=== PATIENT | female | born 1965 | race Two or more races ===

== ENCOUNTER 2016-12-17 05:18 | Inpatient (IN) | payer OTHER ==
[2016-12-17] VITALS (14 sets, daily range): BP systolic 104–136; BP diastolic 66–80
[~2016-12-17] VITALS: Ht 154.9 cm; Wt 74.4 kg
[~2016-12-17 05:18] MED LIST: IBUPROFEN600 MG ORAL; TRAMADOL HCL50 MG ORAL
--- NOTE | 2016-12-17 06:49 | Pre-Procedure Note/Attestation ---
Pre-Procedure Note/Attestation Complete Prior to Procedure Planned Procedure: not applicable Procedure Narrative: L5-S1 Instability with Foraminal Stenosis. For Anterior Lumbar Interbody Decompression and fusion at L5/S1 Indications for Procedure Pre-Operative Diagnosis: L5/S1 instability with Foraminal Stenosis Attestation I attest that I discussed the nature of the procedure; its benefits; risks and complications; and alternatives (and the risks and benefits of such alternatives ), prior to the procedure, with the patient (or the patient's legal field representatives director). I attest that, if there was a reasonable possibility of needing a blood transfusion, the patient (or the patient's legal field representatives director) was given the [place] [facility] [employer] [facility] standardized written summary, pursuant to the Julián [place] Blood Safety Act ([place] Health and Safety Code # 1645, as amended). I attest that I re-evaluated the patient just prior to the surgery and that there has been no change in the patient's H&P, except as documented below: SARA BROWN Dec 17, 2016 06:49
[2016-12-17] MEDS ORDERED: Thrombin 5000 units TOPIC ONE ×2 (06:52→08:22)
[2016-12-17] MEDS ORDERED: Gelfoam Absorbable 1gm powder pkt TOPIC ONE (06:53)
[2016-12-17] MEDS ORDERED: Bacitracin 50000 Units Vial ONE ×2 (06:53→08:22)
[2016-12-17] MEDS ORDERED: Bupivacaine w/Epi 0.5% 30ml Vial INJ ONE (06:53)
[2016-12-17] MEDS ORDERED: Thrombin 5000 units spray kit TOPIC ONE (06:53)
[2016-12-17] MEDS ORDERED: Esmolol 100mg/10ml Inj ONE (07:00)
[2016-12-17] MEDS ORDERED: Propofol 10mg/ml 100ml btl IV ONE (07:00)
[2016-12-17] MEDS ORDERED: Zemuron 50mg/5ml Inj IV ONE (07:00)
[2016-12-17] MEDS ORDERED: NS Irrig 1000ml ONE (07:00)
[2016-12-17] MEDS ORDERED: fentaNYL 100 mcg/2 mL IV ONE (07:00)
[2016-12-17] MEDS ORDERED: LR 1000ml ONE (07:00)
[2016-12-17] MEDS ORDERED: Midazolam 2mg/2ml Inj ONE (07:00)
[2016-12-17] MEDS ORDERED: Sterile Water Irrig 1000ml IRRIG ONE (07:00)
--- NOTE | 2016-12-17 07:13 | Anethesia Preoperative Eval ---
Anesthesia Pre-op PMH/ROS General Date of Evaluation: Dec 17, 2016 Time of Evaluation: 06:45 Anesthesiologist: Parth ASA Score: ASA 1 Mallampati Score Class I : Soft palate, uvula, fauces, pillars visible Class II: Soft palate, uvula, fauces visible Class III: Soft palate, base of uvula visible Class IV: Only hard plate visible Mallampati Classification: Class II Surgeon: Odette Diagnosis: Intervertebral disc disorder Surgical Procedure: ALIF L5-S1 Anesthesia History: none Family History: no anesthesia problems Allergies: Coded Allergies: No Known Allergies (Unverified , 12/14/16) Medications: see eMAR Past Medical History Cardiovascular: Denies: CAD, HTN, [place], arrhythmia, other, valve dz Pulmonary: Denies: COPD, HAY, asthma, other Gastrointestinal/Genitourinary: Denies: CRI, ESRD, GERD, other Neurologic/Psychiatric: Denies: CVA, TIA, dementia, depression/anxiety, other Endocrine: Denies: DM, hypothyroidism, other, steroids HEENT: Denies: STAND[place] (L), STAND[place] (R), cataract (L), cataract (R), glaucoma, other Hematology/Immune: Denies: DVT, anemia, bleeding disorder, other Musculoskeletal/Integumentary: Denies: DDD, DJD, OA, RA, edema, other PMH Narrative: Denies PSxH Narrative: No prior surgery Anesthesia Pre-op Phys. Exam Physician Exam Last Vital Signs Date Time Temp Pulse Resp B/P Pulse Ox O2 Delivery O2 Flow Rate FiO2 12/17/16 05:59 97.3 61 20 104/68 98 Room Air Constitutional: NAD Neurologic: CN 2-12 intact Cardiovascular: RRR, no M/R/G Respiratory: CTA Gastrointestinal: S/NT/ND Airway Exam Mallampati Score: Class II MO: full ROM: full Teeth: intact Anesthesia Pre-op A/P Labs WNL Studies Pre-op Studies: EKG - NSR Risk Assessment & Plan Assessment: Healthy female Plan: GETA Status Change Before Surgery: No Pre-Antibiotics Drug: Ancef 2 GM Given Within 1 Hr of Incision: Yes Time Given: 07:30 LILIANA KAY M.D. Dec 17, 2016 07:13
[2016-12-17] MEDS ORDERED: LR 1000ml 1,000 ML IVLG SCH (07:14)
--- NOTE | 2016-12-17 07:14 | Immediate Post-Op Evaluation ---
Immediate Post-Op Evalulation Immediate Post-Op Evalulation Procedure: ALILF L5-S1 Date of Evaluation: Dec 17, 2016 Time of Evaluation: 09:15 IV Fluids: 800 Estimated Blood Loss: 350 Blood Pressure Systolic: 128 Blood Pressure Diastolic: 75 Pulse Rate: 90 Respiratory Rate: 13 O2 Sat by Pulse Oximetry: 99 Temperature (Fahrenheit): 98.0 Pain Score (1-10): 0 Nausea: No Vomiting: No Complications No complication Patient Status: reacts, patent, extubated, none Hydration Status: adequate Drug: Ancef 2 GM Given Within 1 Hr of Incision: Yes Time Given: 07:30 LILIANA KAY M.D. Dec 17, 2016 07:14
[2016-12-17] MEDS ORDERED: Meperidine 25mg/ml Inj IV PRN (07:15)
[2016-12-17] MEDS ORDERED: Hydromorphone 0.5mg/0.5ml inj IVP PRN (07:15)
[2016-12-17] MEDS ORDERED: LORazepam Inj 2mg/ml 1ml IV PRN (07:15)
[2016-12-17] MEDS ORDERED: DiphenhydrAMINE 50mg/ml Inj IVP PRN ×2 (07:15→10:00)
--- NOTE | 2016-12-17 08:55 | Operative Note - PDOC ---
Operative Note Operative Note Pre-op Diagnosis: L5/S1 instability with Foraminal Stenosis Procedure: ALIF L5/S1 Post-op Diagnosis: same as pre-op Operative Findings: consistent w/pre-op dx studies Surgeon: Odette Malariologist: ROSANNA Brown Additional Surgeons: Pedro Solares - Vascular Approach Anesthesiologist: Parth Anesthesia: general Specimen: yes Complications: none Condition: stable Estimated Blood Loss: minimal Drains: none Implant(s) used?: Yes - Aga InFix Large, 10MM, 3+3 Degree SARA BROWN Dec 17, 2016 08:55
[2016-12-17] MEDS ORDERED: LR 1000ml 1,000 ML IV SCH (09:14)
[2016-12-17] MEDS: PCA HYDROmorphone 1mg/ml 30 ML IV PRN (09:51)
[2016-12-17] MEDS ORDERED: Rate Change PCA 1 Each MISC PRN (10:00)
[2016-12-17] MEDS ORDERED: Naloxone 0.4mg/ml Inj IVP PRN (10:00)
--- NOTE | 2016-12-17 10:48 | Diagnostic Imaging Report ---
Indication: Back pain, intraoperative, right lower extremity pain Technique: Digital intraoperative images Comparison: None Findings: Digital intraoperative images demonstrate surgical tool projected anterior to what is presumably L5-S1 disc. Subsequent images demonstrate placement of a disc prosthesis Impression: Intraoperative imaging, as described
[2016-12-17] MEDS ORDERED: Acetaminophen 650 MG SUPP RECTAL PRN (11:00)
[2016-12-17] MEDS: PCA shift volume MISC SCH ×2 (15:00→23:57)
[2016-12-17] MEDS: ceFAZolin sod 1 GM in D5W 55 ML IV SCH (16:38)
--- NOTE | 2016-12-17 17:27 | Operative Note - Dictated ---
DATE OF OPERATION: 12/17/2016 VASCULAR SURGEON: Uche Solares M.D. SPINE SURGEON: Sebastián Pino M.D. PREOPERATIVE DIAGNOSIS: Anterior retroperitoneal exposure of L5-S1 vertebral interspace. INDICATIONS: The patient is a very pleasant woman who was seen in my office prior to surgery. She has been scheduled for anterior fusion of L5-S1. An extensive discussion was had with her about the need for vascular surgery and mobilization of iliac vessels to expose the anterior surface of the L5-S1. The need for abdominal incision was also discussed. She understands the risks of surgery, and wishes to proceed. DESCRIPTION OF FINDINGS: A low Pfannenstiel type incision was made. A left retroperitoneal approach was used. There was no peritoneal or ureteral violation. There was no vascular injury. Exposure of L5-S1 was obtained below the left iliac vessels and confirmed using fluoroscopy. On completion, the retractor was gently removed. The peritoneum and ureter were intact. The iliac vessels were intact. There were palpable femoral and pedal pulses on completion. BLOOD LOSS: Less than 50 mL. COMPLICATIONS: None. DESCRIPTION OF PROCEDURE: The patient was taken to the operating room. General anesthesia was used. Intravenous antibiotics were given. The patient's abdomen was prepped and draped. Proper time-out procedures were taken. A transverse incision was made just above the pubic symphysis. Flaps were raised superiorly. The anterior fascia was incised longitudinally in midline. A plane was identified posterior to the left rectus abdominis, developed posterolaterally towards the patient's left. The retroperitoneal space was then bluntly entered below the arcuate line. The peritoneum and ureter were mobilized towards the patient's right exposing the left common iliac vessels. Dissection was carried on the undersurface of left common iliac vein. The median sacral artery and vein were identified and ligated with vascular clips and divided and this allowed us to retract the left iliac vessels superior and laterally and expose the anterior surface of L5-S1. The Omni retractor was set in place. Fluoroscopy was then used to confirm the appropriate level, and then instrumentation and fusion were performed at L5-S1 and dictated separately. On completion, retractor was gently removed. The peritoneum and ureter were intact. Iliac vessels were intact. The anterior fascia was closed using #1 PDS in a running fashion. The skin and subcutaneous tissue closed using 3-0 Vicryl and 4-0 Monocryl running subcuticular closure technique. ESTIMATED BLOOD LOSS: Less than 100 mL. COMPLICATIONS: None. Uche Solares M.D. DR: KELLY JOB#: [id number] CC:
--- NOTE | 2016-12-17 18:17 | Operative Note - Dictated ---
DATE OF OPERATION: 12/17/2016 SURGEON: Sebastián Pino M.D. HEALTH DIAGNOSTICS TEACHER: 1. Dr. Solares, vascular approach, co-surgeon. 2. LISA Gomez. ANESTHESIA: Dr. Aguilar, general endotracheal with arterial blood pressure monitoring. PREOPERATIVE DIAGNOSIS: Disc herniation collapse and irritation of the exiting right-sided root at the L5-S1 level. POSTOPERATIVE DIAGNOSIS: Disc herniation collapse and irritation of the exiting right-sided root at the L5-S1 level. OPERATIVE PROCEDURE: Left pararectus anterior approach to the lumbar spine with vessel mobilization and retraction by Dr. Solares. The patient then had an anterior annulotomy and a nuclear diskectomy with partial vertebrectomy, bilateral neural foraminotomy and micro neurolysis. Internal fixation at the lumbosacral level was done with a large size infix cage using 10 millimeters of height and 3+ 3 degrees of lordosis. Bone protein was used along with autogenous bone for the fusion portion of the procedure. Image intensifier was used for aid in placement of the cage and a pulse oximetry was used to monitor the vascular status of the patient's lower extremities. The patient was prepped and draped supine on the operating table. Bolster was placed in lumbar area to create normal lordosis. A left lower abdominal pararectus incision was made by Dr. Solares. The rectus was mobilized. The retroperitoneal space was entered and the front of the disc at L5-S1 was cleared. Vessels were retracted using a table fixed frame and reverse tip blades to center. The Lumbosacral disc was marked with a spinal needle. AP and lateral was taken. Anterior annulotomy was then done. The nuclear disc and cartilaginous endplate was then sequentially removed while using bullet lordotic detachable retractors [id number] beginning at 8 millimeters and progressing to 13 millimeters. The disk was cleared to the posterior edge where the posterior longitudinal ligament posterior disc anulus was released and removed and a bilateral neural foraminotomy was accomplished. Osteophytes were removed from the posterior edge of the vertebral body and extending into both the right and left foramen. The remaining lateral soft tissues were then tensed using a 10 implant, which was visualized on image. Good height and overall alignment was obtained. The large construct fit well within the margins of the vertebral body. A 3+ 3 degrees of lordosis was added to the construct, endplates were tapped into place in a collapsed position. The side struts were then inserted and x-ray was again taken to confirm placement, lordosis and disc height. The side struts were then locked into place and the FloSeal was placed across the dural sac and the epidural venous plexus which were easily visualized. Bone protein was placed within the inferior superior cage window using bone protein and autogenous bone harvested during the procedure. The vessels were checked and the wound was closed in layers including anterior posterior rectus sheath subcutaneous and skin. Blood loss was 50 to 100 mL. The patient was placed in a bulky compression dressing and returned to recovery room in good condition. Sebastián Pino M.D. DR: JOLEEN JOB#: [id number] CC: MADDI
[2016-12-18] VITALS: BP 122/75
[2016-12-18] MEDS: ceFAZolin sod 1 GM in D5W 55 ML IV SCH ×2 (00:49→08:52)
[2016-12-18 04:00] VITALS: BP 116/67
[2016-12-18] MEDS: PCA shift volume MISC SCH ×3 (07:06→23:24)
[2016-12-18 07:14] LABS: BASOPHILS % (AUTO) 0.7 % (0.0-2.0); EOSINOPHILS % (AUTO) 1.3 % (0.0-3.0); MEAN CORPUSCULAR HEMOGLOBIN 28.4 PG (27.0-31.0); MEAN CORPUSCULAR HGB CONC 33.5 G/DL (32.0-36.0); MEAN CORPUSCULAR VOLUME 85 FL (80-99); PLATELET COUNT 211 K/UL (150-450); RED BLOOD COUNT 4.45 M/UL (4.20-5.40); RED CELL DISTRIBUTION WIDTH 12.6 % (11.6-14.8); WHITE BLOOD COUNT 8.2 K/UL (4.8-10.8)
[2016-12-18 07:45] LABS: ANION GAP 12 (5-15); CALCIUM 8.5 mg/dL (8.6-10.2); CARBON DIOXIDE 25 mEQ/L (20-30); CHLORIDE 104 mEQ/L (98-107); CREATININE 0.7 mg/dL (0.5-0.9); GLOMERULAR FILTRATION RATE > 60 mL/min (>60); HEMOLYSIS 2; SODIUM 141 mEQ/L (135-145)
[2016-12-18 08:00] VITALS: BP 128/77
[2016-12-18] MEDS: PCA HYDROmorphone 1mg/ml 30 ML IV PRN (09:36)
--- NOTE | 2016-12-18 10:10 | 48 Hour Post Anesthesia Eval ---
Post Anesthesia Evaluation Procedure: ALILF L5-S1 Date of Evaluation: Dec 18, 2016 Time of Evaluation: 11:30 Blood Pressure Systolic: 128 0: 77 Pulse Rate: 108 Respiratory Rate: 20 Temperature (Fahrenheit): 98.6 O2 Sat by Pulse Oximetry: 99 Airway: patent Nausea: Yes Vomiting: No Pain Intensity: 4 If pain is > 6 Comment: Explained to patient to request antiemetics if needed. She is using COLLATOR Hydration Status: adequate Cardiopulmonary Status: Stable Mental Status/LOC: patient returned to baseline Follow-up Care/Observations: As per surgery Post-Anesthesia Complications: No anesthetic complication Follow-up care needed: N/A LILIANA KAY M.D. Dec 18, 2016 10:10
[2016-12-18 12:03] VITALS: BP 128/71
--- NOTE | 2016-12-18 13:13 | General Surgery Progress Note ---
General Surgery-Progress Note Subjective Procedure Performed ALIF L5/S1 Symptoms: pain same Objective Last 24 Hour Vital Signs Date Time Temp Pulse Resp B/P Pulse Ox O2 Delivery O2 Flow Rate FiO2 12/18/16 12:03 98.1 83 18 128/71 95 Room Air 12/18/16 12:00 18 12/18/16 11:47 108 20 99 12/18/16 08:00 20 12/18/16 08:00 98.6 108 18 128/77 99 Nasal Cannula 2.0 12/18/16 04:00 98.4 107 18 116/67 98 Nasal Cannula 2.0 12/18/16 04:00 20 12/18/16 00:00 20 12/18/16 00:00 100.4 118 18 122/75 98 Nasal Cannula 2.0 12/17/16 22:36 101.0 12/17/16 20:00 100.8 144 20 132/74 96 Room Air 12/17/16 20:00 100.8 12/17/16 16:07 99.0 119 18 136/80 98 Nasal Cannula 2.0 12/17/16 15:40 17 12/17/16 13:20 97.0 85 20 118/71 100 Nasal Cannula 2.0 I&O Intake and Output 12/17/16 12/18/16 19:00 07:00 Intake Total 1525 ml 900 ml Output Total 350 ml Balance 1175 ml 900 ml Intake IV Total 1525 ml 900 ml Output Estimated Blood Loss 350 ml Dressing: dry Wound: clean Drains: none Abdomen: soft, flat, absent bowel sounds Laboratory Tests Test 12/18/16 06:15 White Blood Count 8.2 K/UL (4.8-10.8) Red Blood Count 4.45 M/UL (4.20-5.40) Hemoglobin 12.7 G/DL (12.0-16.0) Hematocrit 37.7 % (37.0-47.0) Mean Corpuscular Volume 85 FL (80-99) Mean Corpuscular Hemoglobin 28.4 PG (27.0-31.0) Mean Corpuscular Hemoglobin Concent 33.5 G/DL (32.0-36.0) Red Cell Distribution Width 12.6 % (11.6-14.8) Platelet Count 211 K/UL (150-450) Mean Platelet Volume 9.0 FL (6.5-10.1) Neutrophils (%) (Auto) 61.0 % (45.0-75.0) Lymphocytes (%) (Auto) 28.0 % (20.0-45.0) Monocytes (%) (Auto) 9.0 % (1.0-10.0) Eosinophils (%) (Auto) 1.3 % (0.0-3.0) Basophils (%) (Auto) 0.7 % (0.0-2.0) Sodium Level 141 mEQ/L (135-145) Potassium Level 4.0 mEQ/L (3.4-4.9) Chloride Level 104 mEQ/L (98-107) Carbon Dioxide Level 25 mEQ/L (20-30) Anion Gap 12 (5-15) Blood Urea Nitrogen 10 mg/dL (7-23) Creatinine 0.7 mg/dL (0.5-0.9) Estimat Glomerular Filtration Rate > 60 mL/min (>60) Glucose Level 106 mg/dL (74-106) Calcium Level 8.5 mg/dL (8.6-10.2) L Additional Comments Wound C&D, lower extremity strength 5/5. To begin PT / OT today. No lower GI track activity. Dr. Condon following. SARA BROWN Dec 18, 2016 13:13
[2016-12-18 16:14] VITALS: BP 138/85
--- NOTE | 2016-12-18 20:06 | History & Physical ---
History and Physical History & Physicial 12/17 HP reviewed care noted d/w RN meds noted and discussed KADE CUMMINS Dec 18, 2016 20:06
--- NOTE | 2016-12-18 20:08 | General Progress Note ---
Assessment/Plan Assessment/Plan ALIF L5/S1 post operative pain tachycardia fevers PLAN 1. incentive spirometry 2. Monitor fevers 3. PT evaluation and therapy 4. Hydration 5. Pain management 6. discharge once stable with outpatient follow up Subjective Allergies: Coded Allergies: No Known Allergies (Unverified , 12/14/16) Subjective tachycardic with fevers has pain Objective Last 24 Hour Vital Signs Date Time Temp Pulse Resp B/P Pulse Ox O2 Delivery O2 Flow Rate FiO2 12/18/16 16:14 100.6 109 18 138/85 96 Room Air 12/18/16 16:00 18 12/18/16 12:03 98.1 83 18 128/71 95 Room Air 12/18/16 12:00 18 12/18/16 11:47 108 20 99 12/18/16 08:00 20 12/18/16 08:00 98.6 108 18 128/77 99 Nasal Cannula 2.0 12/18/16 04:00 98.4 107 18 116/67 98 Nasal Cannula 2.0 12/18/16 04:00 20 12/18/16 00:00 20 12/18/16 00:00 100.4 118 18 122/75 98 Nasal Cannula 2.0 12/17/16 22:36 101.0 Intake and Output 12/17/16 12/18/16 19:00 07:00 Intake Total 1525 ml 900 ml Output Total 350 ml Balance 1175 ml 900 ml Intake IV Total 1525 ml 900 ml Output Estimated Blood Loss 350 ml Laboratory Tests 12/18/16 06:15: White Blood Count 8.2, Red Blood Count 4.45, Hemoglobin 12.7, Hematocrit 37.7, Mean Corpuscular Volume 85, Mean Corpuscular Hemoglobin 28.4, Mean Corpuscular Hemoglobin Concent 33.5, Red Cell Distribution Width 12.6, Platelet Count 211, Mean Platelet Volume 9.0, Neutrophils (%) (Auto) 61.0, Lymphocytes (%) (Auto) 28.0, Monocytes (%) (Auto) 9.0, Eosinophils (%) (Auto) 1.3, Basophils (%) (Auto ) 0.7, Sodium Level 141, Potassium Level 4.0, Chloride Level 104, Carbon Dioxide Level 25, Anion Gap 12, Blood Urea Nitrogen 10, Creatinine 0.7, Estimat Glomerular Filtration Rate > 60, Glucose Level 106, Calcium Level 8.5L Height (Feet): 5 Height (Inches): 1.00 Weight (Pounds): 164 Objective WDWN NAD clear breath sounds bilaterally without rhonchi or wheeze S1S2RR tachy without MRG NABS nontender no HSM no CCE nonfocal KADE CUMMINS Dec 18, 2016 20:08
[2016-12-18 20:22] VITALS: BP 123/76
[2016-12-19 00:24] VITALS: BP 138/78
[2016-12-19 04:00] VITALS: BP 130/74
[2016-12-19] MEDS: PCA shift volume MISC SCH ×2 (07:00→23:00)
[2016-12-19 08:10] VITALS: BP 122/66
[2016-12-19] MEDS: PCA HYDROmorphone 1mg/ml 30 ML IV PRN (09:40)
[2016-12-19] MEDS ORDERED: Norco 7.5mg/325mg tab ORAL PRN ×2 (10:01)
[2016-12-19] MEDS ORDERED: HYDROmorphone 1mg/ml Carpuject SUBQ PRN (10:01)
[2016-12-19] MEDS ORDERED: Naloxone 0.4mg/ml Inj IVP PRN ×2 (10:01→15:30)
[2016-12-19] MEDS ORDERED: HYDROmorphone 1mg/ml Carpuject IVP PRN (10:01)
[2016-12-19 11:28] VITALS: BP 139/80
--- NOTE | 2016-12-19 12:28 | General Progress Note ---
Assessment/Plan Assessment/Plan ALIF L5/S1 post operative pain tachycardia fevers PLAN 1. incentive spirometry 2. Monitor fevers 3. PT evaluation and therapy 4. Hydration 5. Pain management 6. discharge once stable with outpatient follow up ? in am Subjective Allergies: Coded Allergies: No Known Allergies (Unverified , 12/14/16) Subjective tachycardic with fevers have resolved has pain Objective Last 24 Hour Vital Signs Date Time Temp Pulse Resp B/P Pulse Ox O2 Delivery O2 Flow Rate FiO2 12/19/16 12:00 16 12/19/16 11:28 98.1 77 20 139/80 94 Room Air 12/19/16 08:42 99.0 12/19/16 08:10 99.0 117 20 122/66 97 Nasal Cannula 2.0 12/19/16 08:00 16 12/19/16 04:00 100.4 112 19 130/74 92 Nasal Cannula 12/19/16 04:00 16 12/19/16 00:24 97.2 103 19 138/78 99 Nasal Cannula 12/19/16 00:00 20 12/18/16 20:47 18 12/18/16 20:22 100.8 104 18 123/76 95 Room Air 12/18/16 16:14 100.6 109 18 138/85 96 Room Air 12/18/16 16:00 18 Intake and Output 12/18/16 12/19/16 19:00 07:00 Intake Total 900 ml 675 ml Balance 900 ml 675 ml Intake IV Total 900 ml 675 ml # Voids 4 2 Height (Feet): 5 Height (Inches): 1.00 Weight (Pounds): 164 Objective WDWN NAD clear breath sounds bilaterally without rhonchi or wheeze S1S2RR RRR without MRG minimal bowel sounds nontender no HSM no CCE nonfocal KADE CUMMINS Dec 19, 2016 12:28
--- NOTE | 2016-12-19 14:46 | General Surgery Progress Note ---
General Surgery-Progress Note Subjective Procedure Performed ALIF L5/S1 Symptoms: improved, passing flatus Objective Last 24 Hour Vital Signs Date Time Temp Pulse Resp B/P Pulse Ox O2 Delivery O2 Flow Rate FiO2 12/19/16 12:00 16 12/19/16 11:28 98.1 77 20 139/80 94 Room Air 12/19/16 08:42 99.0 12/19/16 08:10 99.0 117 20 122/66 97 Nasal Cannula 2.0 12/19/16 08:00 16 12/19/16 04:00 100.4 112 19 130/74 92 Nasal Cannula 12/19/16 04:00 16 12/19/16 00:24 97.2 103 19 138/78 99 Nasal Cannula 12/19/16 00:00 20 12/18/16 20:47 18 12/18/16 20:22 100.8 104 18 123/76 95 Room Air 12/18/16 16:14 100.6 109 18 138/85 96 Room Air 12/18/16 16:00 18 I&O Intake and Output 12/18/16 12/19/16 19:00 07:00 Intake Total 900 ml 675 ml Balance 900 ml 675 ml Intake IV Total 900 ml 675 ml # Voids 4 2 Dressing: dry Wound: clean Drains: none Abdomen: soft Additional Comments Patient began passing gas this AM, will start on clears at PM meal if continues. Pt making minimal progress /effort in Physical Therapy Dr. Condon following. SARA BROWN Dec 19, 2016 14:46
[2016-12-19] MEDS ORDERED: Rate Change PCA 1 Each MISC PRN (15:30)
[2016-12-19] MEDS ORDERED: DiphenhydrAMINE 50mg/ml Inj IVP PRN (15:30)
[2016-12-19] MEDS ORDERED: PCA HYDROmorphone 1mg/ml 30 ML IV PRN (15:30)
[2016-12-19 15:50] VITALS: BP 134/79
[2016-12-19 20:00] VITALS: BP 118/71
[2016-12-20] VITALS: BP 120/77
[2016-12-20 04:00] VITALS: BP 118/73
[2016-12-20] MEDS: PCA shift volume MISC SCH (07:00)
[2016-12-20 08:09] VITALS: BP 139/85
--- NOTE | 2016-12-20 08:14 | General Progress Note ---
Assessment/Plan Assessment/Plan ALIF L5/S1 post operative pain tachycardia fevers PLAN 1. incentive spirometry 2. start clears and advance 3. PT evaluation and therapy 4. Hydration 5. 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 discharge planning if agreed to by surgery Subjective Allergies: Coded Allergies: No Known Allergies (Unverified , 12/14/16) Subjective pain better still NPO passing gas Objective Last 24 Hour Vital Signs Date Time Temp Pulse Resp B/P Pulse Ox O2 Delivery O2 Flow Rate FiO2 12/20/16 08:09 98.2 62 20 139/85 95 Room Air 12/20/16 04:00 98.1 83 16 118/73 93 Room Air 12/20/16 04:00 16 12/20/16 00:00 16 12/20/16 00:00 97.7 90 16 120/77 96 Room Air 12/19/16 20:00 98.2 82 18 118/71 96 Room Air 12/19/16 20:00 16 12/19/16 16:00 16 12/19/16 15:50 97.3 80 20 134/79 93 Room Air 12/19/16 12:00 16 12/19/16 11:28 98.1 77 20 139/80 94 Room Air 12/19/16 08:42 99.0 Intake and Output 12/19/16 12/20/16 19:00 07:00 Intake Total 450 ml 825 ml Balance 450 ml 825 ml Intake IV Total 450 ml 825 ml # Voids 4 3 Height (Feet): 5 Height (Inches): 1.00 Weight (Pounds): 164 Objective WDWN NAD clear breath sounds bilaterally without rhonchi or wheeze S1S2RR RRR without MRG noted bowel sounds nontender no HSM no CCE nonfocal KADE CUMMINS Dec 20, 2016 08:14
[2016-12-20] MEDS ORDERED: Norco 7.5mg/325mg tab ORAL PRN (08:41)
[2016-12-20] MEDS ORDERED: HYDROmorphone 1mg/ml Carpuject SUBQ PRN (08:41)
[2016-12-20] MEDS ORDERED: HYDROmorphone 1mg/ml Carpuject IVP PRN (08:41)
[2016-12-20] MEDS ORDERED: Naloxone 0.4mg/ml Inj IVP PRN (08:41)
--- NOTE | 2016-12-20 09:46 | General Surgery Progress Note ---
General Surgery-Progress Note Subjective Procedure Performed ALIF L5/S1 Chief Complaint: Swelling at abdominal incision area Symptoms: improved Objective Last 24 Hour Vital Signs Date Time Temp Pulse Resp B/P Pulse Ox O2 Delivery O2 Flow Rate FiO2 12/20/16 08:09 98.2 62 20 139/85 95 Room Air 12/20/16 04:00 98.1 83 16 118/73 93 Room Air 12/20/16 04:00 16 12/20/16 00:00 16 12/20/16 00:00 97.7 90 16 120/77 96 Room Air 12/19/16 20:00 98.2 82 18 118/71 96 Room Air 12/19/16 20:00 16 12/19/16 16:00 16 12/19/16 15:50 97.3 80 20 134/79 93 Room Air 12/19/16 12:00 16 12/19/16 11:28 98.1 77 20 139/80 94 Room Air I&O Intake and Output 12/19/16 12/20/16 19:00 07:00 Intake Total 450 ml 825 ml Balance 450 ml 825 ml Intake IV Total 450 ml 825 ml # Voids 4 3 Dressing: dry Wound: clean Drains: none Abdomen: other - Swelling at and cephaalad to abdoninal incision, consistant with seroma. Additional Comments Will evaluate swelling in abdominal wall with abdominal ultrasound today. Appears to be seroma / collection superficial to facia. Patient activity progress has been very slow. SARA oDe Dec 20, 2016 09:46
[2016-12-20 11:42] VITALS: BP 127/68
--- NOTE | 2016-12-20 11:54 | Diagnostic Imaging Report ---
Indications: Abdominal pain and distention, nausea and vomiting Technique: Transabdominal real-time grayscale and duplex Doppler imaging of the upper abdomen and retroperitoneum was performed. Findings: Comparison: None. Liver normal size and surface contour, diffusely increased parenchymal echogenicity. No focal lesions. Gallbladder contains lobulated hypoechoic non-shadowing material. No stone identified.. No mural thickening or adjacent fluid collections. Sonographic Thomason sign negative.. Bile ducts normal caliber. Common bile duct 7 mm. Pancreas visualized portions unremarkable. Spleen unremarkable. Right kidney demonstrates mild collecting system dilation, otherwise unremarkable. Left kidney demonstrates mild collecting system dilation, otherwise unremarkable. Abdominal aorta, intrahepatic portion of inferior vena cava patent, normal caliber. Duplex Doppler imaging demonstrates antegrade flow in splenic, portal, hepatic veins. No ascites. Urinary bladder markedly distended. IMPRESSION: Bilateral hydronephrosis, nonspecific, may be secondary to urinary bladder distention and outlet obstruction. Repeat imaging following Rios catheter insertion recommended. Hepatic steatosis Gallbladder sludge Remainder of exam unremarkable.
[2016-12-20 16:00] VITALS: BP 127/70
[2016-12-20 19:00] VITALS: BP 137/75
[2016-12-21] VITALS: BP 131/87
[2016-12-21 04:00] VITALS: BP 119/65
[2016-12-21 08:00] VITALS: BP 124/74
--- NOTE | 2016-12-21 09:04 | General Surgery Progress Note ---
General Surgery-Progress Note Subjective Procedure Performed ALIF L5/S1 Symptoms: improved, tolerating diet, passing flatus Objective Last 24 Hour Vital Signs Date Time Temp Pulse Resp B/P Pulse Ox O2 Delivery O2 Flow Rate FiO2 12/21/16 08:00 98.6 54 20 124/74 96 Room Air 12/21/16 04:00 98.2 65 18 119/65 95 Room Air 12/21/16 00:00 98.2 65 18 131/87 97 Room Air 12/20/16 19:00 96.1 56 18 137/75 97 Room Air 12/20/16 17:15 97.9 12/20/16 16:00 97.9 72 20 127/70 95 Room Air 12/20/16 11:42 97.2 77 20 127/68 97 Room Air I&O Intake and Output 12/20/16 12/21/16 19:00 07:00 Intake Total 1500 ml 944 ml Output Total 1450 ml Balance 1500 ml -506 ml Intake Oral 600 ml 120 ml IV Total 900 ml 824 ml Output Urine Total 1450 ml # Voids 9 # Bowel Movements 2 1 Dressing: dry Wound: clean Drains: none Extremities: other - Fluid collection in abd wall cephalad to incision remains. Additional Comments ultrasound 12/20/16 showed no intra abdominal collections. Will observe fluid collection in ABD wall for present. Patient tolerating initial oral intake. Patient completed PT/OT requirements for discharge. SARA Doe Dec 21, 2016 09:04
--- NOTE | 2016-12-21 09:04 | General Progress Note ---
Assessment/Plan Problem List: (1) Disc disorder of lumbar region ICD Codes: M51.9 - Unspecified thoracic, thoracolumbar and lumbosacral intervertebral disc disorder SNOMED: 81423455, [id number] Status: stable, progressing Assessment/Plan pain control. check bladder scan/pvr surgery follow up Subjective ROS Limited/Unobtainable: No Constitutional: Reports: no symptoms HEENT: Reports: other - headache Cardiovascular: Reports: no symptoms Respiratory: Reports: no symptoms Gastrointestinal/Abdominal: Reports: no symptoms Genitourinary: Reports: no symptoms Neurologic/Psychiatric: Reports: no symptoms Endocrine: Reports: no symptoms Hematologic/Lymphatic: Reports: no symptoms Allergies: Coded Allergies: No Known Allergies (Unverified , 12/14/16) All Systems: reviewed and negative except above Subjective c/o mild headaches. no cp/sob. alexa weakness or numbness. clinton showed hydro and distended bladder. straight cath done. Objective Last 24 Hour Vital Signs Date Time Temp Pulse Resp B/P Pulse Ox O2 Delivery O2 Flow Rate FiO2 12/21/16 08:00 98.6 54 20 124/74 96 Room Air 12/21/16 04:00 98.2 65 18 119/65 95 Room Air 12/21/16 00:00 98.2 65 18 131/87 97 Room Air 12/20/16 19:00 96.1 56 18 137/75 97 Room Air 12/20/16 17:15 97.9 12/20/16 16:00 97.9 72 20 127/70 95 Room Air 12/20/16 11:42 97.2 77 20 127/68 97 Room Air Intake and Output 12/20/16 12/21/16 19:00 07:00 Intake Total 1500 ml 944 ml Output Total 1450 ml Balance 1500 ml -506 ml Intake Oral 600 ml 120 ml IV Total 900 ml 824 ml Output Urine Total 1450 ml # Voids 9 # Bowel Movements 2 1 Height (Feet): 5 Height (Inches): 1.00 Weight (Pounds): 164 General Appearance: WD/WN, alert Neck: supple Cardiovascular: regular rhythm Respiratory/Chest: lungs clear Abdomen: non tender, soft Edema: no edema noted Arm (L), no edema noted Arm (R), no edema noted Leg (L), no edema noted Leg (R), no edema noted Pedal (L), no edema noted Pedal (R), no edema noted Generalized Neurologic: no motor/sensory deficits CHAGO OCASIO Dec 21, 2016 09:04
[2016-12-21 09:58] LABS: BASOPHILS % (AUTO) 0.6 % (0.0-2.0); EOSINOPHILS % (AUTO) 3.2 % (0.0-3.0); MEAN CORPUSCULAR HEMOGLOBIN 27.1 PG (27.0-31.0); MEAN CORPUSCULAR HGB CONC 32.2 G/DL (32.0-36.0); MEAN CORPUSCULAR VOLUME 84 FL (80-99); MEAN PLATELET VOLUME 8.9 FL (6.5-10.1); MONOCYTES % (AUTO) 5.5 % (1.0-10.0); NEUTROPHILS % (AUTO) 53.6 % (45.0-75.0); PLATELET COUNT 203 K/UL (150-450); RED BLOOD COUNT 3.93 M/UL (4.20-5.40); RED CELL DISTRIBUTION WIDTH 12.6 % (11.6-14.8); WHITE BLOOD COUNT 7.2 K/UL (4.8-10.8)
[2016-12-21 10:32] LABS: ALANINE AMINOTRANSFERASE 113 U/L (3-33); ALBUMIN/GLOBULIN RATIO 1.1 (1.0-2.7); ANION GAP 16 (5-15); ASPARTATE AMINO TRANSFERASE 121 U/L (5-40); CALCIUM 8.7 mg/dL (8.6-10.2); CARBON DIOXIDE 23 mEQ/L (20-30); CHLORIDE 107 mEQ/L (98-107); CREATININE 0.6 mg/dL (0.5-0.9); GLOMERULAR FILTRATION RATE > 60 mL/min (>60); HEMOLYSIS 2; POTASSIUM 3.3 mEQ/L (3.4-4.9); SODIUM 146 mEQ/L (135-145); TOTAL PROTEIN 6.2 g/dL (6.6-8.7)
[2016-12-21 12:00] VITALS: BP 146/69
[2016-12-21] MEDS: Norco 7.5mg/325mg tab ORAL PRN (15:18)
[2016-12-21 16:00] VITALS: BP 146/82
[2016-12-21 20:00] VITALS: BP 142/81
[2016-12-22 00:36] VITALS: BP_SYST 143; BP_SYST 166; BP_DIAS 74; BP_DIAS 83
[2016-12-22] MEDS: Norco 7.5mg/325mg tab ORAL PRN ×3 (03:32→15:37)
[2016-12-22 04:00] VITALS: BP 147/81
[2016-12-22 08:00] VITALS: BP 129/77
--- NOTE | 2016-12-22 09:07 | General Progress Note ---
Assessment/Plan Problem List: (1) Disc disorder of lumbar region ICD Codes: M51.9 - Unspecified thoracic, thoracolumbar and lumbosacral intervertebral disc disorder SNOMED: [id number], [id number] Status: stable Assessment/Plan pain control. chen try voiding trial tomorrow ivf antiemetics surgery follow up re: headaches ?csf leak Subjective ROS Limited/Unobtainable: No Constitutional: Reports: malaise, weakness HEENT: Reports: other - headache Cardiovascular: Reports: no symptoms Respiratory: Reports: no symptoms Gastrointestinal/Abdominal: Reports: vomiting Genitourinary: Reports: no symptoms Neurologic/Psychiatric: Reports: no symptoms Endocrine: Reports: no symptoms Hematologic/Lymphatic: Reports: no symptoms Allergies: Coded Allergies: No Known Allergies (Unverified , 12/14/16) All Systems: reviewed and negative except above Subjective still c/o headaches. no cp/sob. alexa weakness or numbness. clinton showed hydro and distended bladder. straight cath done. vomited x 1 Objective Last 24 Hour Vital Signs Date Time Temp Pulse Resp B/P Pulse Ox O2 Delivery O2 Flow Rate FiO2 12/22/16 04:00 98.4 57 20 147/81 93 Room Air 12/22/16 00:36 98.1 56 19 143/74 95 Room Air 12/21/16 20:00 98.2 64 18 142/81 92 Room Air 12/21/16 16:00 97.5 49 20 146/82 98 Room Air 12/21/16 12:00 98.1 51 20 146/69 96 Room Air Bad tableLaboratory Tests 12/21/16 09:50: White Blood Count 7.2, Red Blood Count 3.93L, Hemoglobin 10.7L, Hematocrit 33.1L , Mean Corpuscular Volume 84, Mean Corpuscular Hemoglobin 27.1, Mean Corpuscular Hemoglobin Concent 32.2, Red Cell Distribution Width 12.6, Platelet Count 203, Mean Platelet Volume 8.9, Neutrophils (%) (Auto) 53.6, Lymphocytes (% ) (Auto) 37.0, Monocytes (%) (Auto) 5.5, Eosinophils (%) (Auto) 3.2H, Basophils (%) (Auto) 0.6, Sodium Level 146H, Potassium Level 3.3L, Chloride Level 107, Carbon Dioxide Level 23, Anion Gap 16H, Blood Urea Nitrogen 12, Creatinine 0.6, Estimat Glomerular Filtration Rate > 60, Glucose Level 122H, Calcium Level 8.7, Total Bilirubin 0.9, Aspartate Amino Transf (AST/SGOT) 121H, Alanine Aminotransferase (ALT/SGPT) 113H, Alkaline Phosphatase 211H, Total Protein 6.2L , Albumin 3.3L, Globulin 2.9, Albumin/Globulin Ratio 1.1 Height (Feet): 5 Height (Inches): 1.00 Weight (Pounds): 164 General Appearance: WD/WN, alert Neck: supple Cardiovascular: regular rhythm Respiratory/Chest: lungs clear, normal breath sounds, no respiratory distress Abdomen: normal bowel sounds, non tender, soft, no organomegaly Edema: no edema noted Arm (L), no edema noted Arm (R), no edema noted Leg (L), no edema noted Leg (R), no edema noted Pedal (L), no edema noted Pedal (R), no edema noted 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
[2016-12-22] MEDS: D5 1/2NS w/KCl 20mEq 1,000 ML IV SCH ×2 (09:55→23:55)
[2016-12-22 10:08] LABS: ALANINE AMINOTRANSFERASE 97 U/L (3-33); ALBUMIN/GLOBULIN RATIO 1.1 (1.0-2.7); ANION GAP 17 (5-15); ASPARTATE AMINO TRANSFERASE 60 U/L (5-40); CALCIUM 8.6 mg/dL (8.6-10.2); CARBON DIOXIDE 23 mEQ/L (20-30); CHLORIDE 102 mEQ/L (98-107); CREATININE 0.5 mg/dL (0.5-0.9); GLOMERULAR FILTRATION RATE > 60 mL/min (>60); HEMOLYSIS 2; POTASSIUM 3.5 mEQ/L (3.4-4.9); SODIUM 142 mEQ/L (135-145); TOTAL PROTEIN 6.1 g/dL (6.6-8.7)
[2016-12-22 10:09] LABS: AMYLASE 46 U/L (10-110); LIPASE 29 U/L (< 60)
[2016-12-22 12:04] VITALS: BP 139/76
[2016-12-22 16:00] VITALS: BP 142/87
[2016-12-22 20:00] VITALS: BP 120/70
[2016-12-23 00:36] VITALS: BP 146/83
[2016-12-23 04:00] VITALS: BP 140/72
--- NOTE | 2016-12-23 06:50 | General Progress Note ---
Assessment/Plan Problem List: (1) Disc disorder of lumbar region ICD Codes: M51.9 - Unspecified thoracic, thoracolumbar and lumbosacral intervertebral disc disorder SNOMED: [id number], [id number] Status: stable, not improved Assessment/Plan pain control. try voiding trial ivf antiemetics surgery follow up re: headaches\ neuro surg follow up ?csf leak Subjective ROS Limited/Unobtainable: No Constitutional: Reports: malaise, weakness HEENT: Reports: other - headache Cardiovascular: Reports: no symptoms Respiratory: Reports: no symptoms Gastrointestinal/Abdominal: Reports: no symptoms Genitourinary: Reports: other Neurologic/Psychiatric: Reports: no symptoms Endocrine: Reports: no symptoms Hematologic/Lymphatic: Reports: no symptoms Allergies: Coded Allergies: No Known Allergies (Unverified , 12/14/16) Subjective still c/o headaches. worse when standing. no cp/sob. alexa weakness or numbness. Objective Last 24 Hour Vital Signs Date Time Temp Pulse Resp B/P Pulse Ox O2 Delivery O2 Flow Rate FiO2 12/23/16 04:00 98.2 69 20 140/72 94 Room Air 12/23/16 00:36 97.7 57 21 146/83 94 Room Air 12/22/16 20:00 98.2 83 18 120/70 97 Room Air 12/22/16 16:00 97.9 58 19 142/87 Room Air 97.0 12/22/16 12:04 98.4 56 20 139/76 97 Room Air 12/22/16 08:00 97.7 63 20 129/77 98 Room Air Intake and Output 12/22/16 12/23/16 19:00 07:00 Intake Total 1650 ml 1265 ml Output Total 2200 ml 3850 ml Balance -550 ml -2585 ml Intake Oral 900 ml 440 ml IV Total 750 ml 825 ml Output Urine Total 2200 ml 3850 ml # Bowel Movements 1 Laboratory Tests 12/22/16 09:30: Sodium Level 142, Potassium Level 3.5, Chloride Level 102, Carbon Dioxide Level 23, Anion Gap 17H, Blood Urea Nitrogen 8, Creatinine 0.5, Estimat Glomerular Filtration Rate > 60, Glucose Level 147H, Calcium Level 8.6, Total Bilirubin 0.5 , Aspartate Amino Transf (AST/SGOT) 60H, Alanine Aminotransferase (ALT/SGPT) 97H , Alkaline Phosphatase 206H, Total Protein 6.1L, Albumin 3.2L, Globulin 2.9, Albumin/Globulin Ratio 1.1, Amylase Level 46, Lipase 29 Height (Feet): 5 Height (Inches): 1.00 Weight (Pounds): 164 Objective General Appearance: WD/WN, alert Neck: supple Cardiovascular: regular rhythm Respiratory/Chest: lungs clear, normal breath sounds, no respiratory distress Abdomen: normal bowel sounds, non tender, soft, no organomegaly Edema: no edema noted Arm (L), no edema noted Arm (R), no edema noted Leg (L), no edema noted Leg (R), no edema noted Pedal (L), no edema noted Pedal (R), no edema noted 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
[2016-12-23 07:52] VITALS: BP 133/66
[2016-12-23] MEDS: Norco 7.5mg/325mg tab ORAL PRN (08:00)
[2016-12-23 08:07] LABS: ALANINE AMINOTRANSFERASE 76 U/L (3-33); ALBUMIN/GLOBULIN RATIO 1.5 (1.0-2.7); ANION GAP 16 (5-15); ASPARTATE AMINO TRANSFERASE 36 U/L (5-40); CALCIUM 8.3 mg/dL (8.6-10.2); CARBON DIOXIDE 27 mEQ/L (20-30); CHLORIDE 98 mEQ/L (98-107); CREATININE 0.7 mg/dL (0.5-0.9); GLOMERULAR FILTRATION RATE > 60 mL/min (>60); HEMOLYSIS 4; POTASSIUM 3.4 mEQ/L (3.4-4.9); SODIUM 141 mEQ/L (135-145)
[2016-12-23] MEDS ORDERED: NS 550ML IV ONE (08:58)
[2016-12-23] MEDS ORDERED: Tubing IV Secondary IV ONE (08:58)
[2016-12-23 11:48] VITALS: BP 123/73
[2016-12-23] MEDS: D5 1/2NS w/KCl 20mEq 1,000 ML IV SCH (12:40)
[2016-12-23 15:57] VITALS: BP 131/76
[2016-12-23 20:19] VITALS: BP 133/77
[2016-12-24] VITALS: BP 135/78
[2016-12-24] MEDS: Norco 7.5mg/325mg tab ORAL PRN ×3 (00:24→01:44)
[2016-12-24] MEDS: D5 1/2NS w/KCl 20mEq 1,000 ML IV SCH (01:46)
[2016-12-24 04:00] VITALS: BP 109/77
[2016-12-24] MEDS ORDERED: Bisacodyl EC 5mg tab ORAL PRN (07:30)
[2016-12-24 08:00] VITALS: BP 133/74
--- NOTE | 2016-12-25 09:22 | Discharge Summary ---
Discharge Summary Hospital Course Date of Admission Dec 17, 2016 at 05:18 Date of Discharge Dec 24, 2016 at 12:48 Admitting Diagnosis disc disorder of lumbar region Reason for Hospitalization: elective surgery MARIA ESTHER Salvador is a 51 year old female who was admitted on Dec 17, 2016 at 05: 18 for disc disorder of lumbar region for elective surgery Consultations surgery dr Pino Procedures ALIF 12/18 dr Pino Hospital Course patient with disc disorder of lumbar region admitted for elective surgery undergone 12/18 ALIF L5-S1 postop day 1 and 2 with intermittent fevers, tachycardia IVF provided IS explained and encouraged pain management provided fevers and tachycardia -resolved initially difficulties with voiding, US with bilateral hydro Rios inserted ,voiding trial afterwards , successfully able to void freely PT/OT ambulates DME to be delivered at home surgery cleared for discharge fup with surgeon as outpatient as specified by surgeon DISCHARGE DIAGNOSIS Disc herniation collapse and irritation of the exiting right-sided root at the L5-S1 level s/p ALIF L5S1 12/17 postoperative pain Discharge Medications Continued Medications: Ibuprofen* (Motrin*) 600 Mg Tablet 600 MG ORAL DAILY PRN for For Pain, #30 TAB 0 Refills Tramadol Hcl* (Ultram*) 50 Mg Tablet 150 MG ORAL DAILY, #30 TAB 0 Refills Discharge Condition Upon Discharge: stable Discharge Disposition Patient was discharged to Home () Discharge Diagnoses: Discharge Instructions Discharge Instructions Special Instructions I have been assigned to complete a D/C Summary on this account. I was not involved in the patient management Aleyda Callaway NP ([facility]) Dec 25, 2016 09:22
== END 2016-12-24 12:48 | disposition home or self-care (01) | DRG 460 ==
LOC: SDSOVERFLO 05:18 → 3E 10:50
PROC: 0SG30A0 Fusion of Lumbosacral Joint with Interbody Fusion Device, Anterior Approach, Anterior Column, Open Approach (ICD-10-PCS; principal; 2016-12-17 07:00)
PROC: 01NB0ZZ Release Lumbar Nerve, Open Approach (ICD-10-PCS; principal; 2016-12-17 07:00)
PROC: 0SB40ZZ Excision of Lumbosacral Disc, Open Approach (ICD-10-PCS; principal; 2016-12-17 07:00)
DX: M51.17 Intervertebral disc disorders with radiculopathy, lumbosacral region (principal); G89.18 Other acute postprocedural pain; M48.07 Spinal stenosis, lumbosacral region; R00.0 Tachycardia, unspecified; R50.9 Fever, unspecified
CPT/HCPCS: 36415; 72020; 76001; 76700; 80048; 80053; 82150; 83690; 85025; 86850; 86900; 86901; 87081; 94003; 94150; J2180; J2250; J2405; J8499